=== PATIENT | female | born 1995 | race African-American/Black ===

== ENCOUNTER 2019-03-29 15:15 | Emergency (ER) | payer OTHER ==
[2019-03-29] MEDS ORDERED: NORMAL SALINE 1000 ML 1,000 ML IV ONE (16:17)
[2019-03-29] MEDS ORDERED: ONDANSETRON HCL INJ/PF 4 MG/2 ML SDV IV ONE ×2 (16:17→19:00)
--- NOTE | 2019-03-29 16:18 | ER Document Report ---
ED Medical Screen (RME) - General Chief Complaint: Abdominal Pain Stated Complaint: VOMITING/ABDOMINAL PAIN/CHILLS/ARMS TINGLING/DIAHE Time Seen by Provider: 03/29/19 16:15 Primary Care Provider: DEAN PÉREZ [Primary Care Provider] - Follow up as needed Mode of Arrival: Ambulatory Information source: Patient Notes: Otherwise healthy 23-year-old female presented emergency department with complaints of nausea, vomiting, diarrhea and abdominal pain. Patient denies any fever but reports chills. She denies any abnormal vaginal discharge. Generalized abdominal tenderness, no guarding, no rebound. I have greeted and performed a rapid initial assessment of this patient. A comprehensive ED assessment and evaluation of the patient, analysis of test results and completion of the medical decision making process will be conducted by additional ED providers. I have specifically instructed the patient or family members with the patient to immediately return to any nursing staff should anything change in the patient's condition or with their chief complaint. - Related Data Allergies/Adverse Reactions: No Known Allergies Allergy (Verified 03/29/19 16:17) Home Medications: control pill Past Medical History - Social History Frequency of alcohol use: None Drug Abuse: Marijuana Physical Exam - Vital signs Vitals: Temp Pulse Resp BP Pulse Ox 98.1 F 72 16 134/72 H 100 03/29/19 16:08 03/29/19 16:08 03/29/19 16:08 03/29/19 16:08 03/29/19 16:08 Course - Vital Signs Vital signs: Temp Pulse Resp BP Pulse Ox 98.1 F 72 16 134/72 H 100 03/29/19 16:08 03/29/19 16:08 03/29/19 16:08 03/29/19 16:08 03/29/19 16:08 Doctor's Discharge - Discharge Referrals: DEAN PÉREZ [Primary Care Provider] - Follow up as needed
[2019-03-29 17:27] LABS: ABSOLUTE BASOPHILS # (AUTO) 0.1 10^3/uL (0.0-0.2); ABSOLUTE EOSINOPHILS # (AUTO) 0.1 10^3/uL (0.0-0.6); ABSOLUTE LYMPHOCYTES (AUTO) 2.7 10^3/uL (0.5-4.7); ABSOLUTE MONOCYTES (AUTO) 0.9 10^3/uL (0.1-1.4); ABSOLUTE NEUT (AUTO) 8.2 10^3/uL (1.7-8.2); BASOPHILS % (AUTO) 0.8 % (0-2); EOSINOPHILS % (AUTO) 0.5 % (0-6); HEMATOCRIT 39.6 % (36.0-47.0); HEMOGLOBIN 13.2 g/dL (12.0-15.5); LYMPHOCYTES % (AUTO) 22.2 % (13-45); MEAN CORPUSCULAR HEMOGLOBIN 26.9 pg (27.0-33.4); MEAN CORPUSCULAR HGB CONC 33.4 g/dL (32.0-36.0); MEAN CORPUSCULAR VOLUME 81 fl (80-97); MONOCYTES % (AUTO) 7.9 % (3-13); PLATELET COUNT 473 10^3/uL (150-450); RED BLOOD COUNT 4.91 10^6/uL (3.72-5.28); RED CELL DISTRIBUTION WIDTH 15.7 % (11.5-14.0); SEGMENTED NEUTROPHILS % (AUTO) 68.6 % (42-78); TOTAL CELLS COUNTED % (AUTO) 100 %
[2019-03-29 17:48] LABS: ALBUMIN 4.8 g/dL (3.5-5.0); ALKALINE PHOSPHATASE 82 U/L (38-126); ANION GAP 18 (5-19); ASPARTATE AMINO TRANSFERASE 20 U/L (14-36); BILIRUBIN,DIRECT 0.3 mg/dL (0.0-0.4); BILIRUBIN,TOTAL 0.5 mg/dL (0.2-1.3); BLOOD UREA NITROGEN 7 mg/dL (7-20); CALCIUM 10.8 mg/dL (8.4-10.2); CARBON DIOXIDE 20 mmol/L (22-30); CHLORIDE 106 mmol/L (98-107); GLUCOSE 90 mg/dL (75-110); POTASSIUM 3.5 mmol/L (3.6-5.0); TOTAL PROTEIN 8.9 g/dL (6.3-8.2)
[2019-03-29 20:04] LABS: APPEARANCE,URINE SLIGHTLY-CLOUDY; BILIRUBIN,URINE NEGATIVE (NEGATIVE); COLOR,URINE YELLOW; GLUCOSE, URINE NEGATIVE (NEGATIVE); KETONES,URINE 80 mg/dL (NEGATIVE); LEUKOCYTE ESTERASE,URINE TRACE (NEGATIVE); NITRITE,URINE NEGATIVE (NEGATIVE); PROTEIN,URINE 30 mg/dL (NEGATIVE); URINE SPECIFIC GRAVITY 1.023; UROBILINOGEN,URINE NEGATIVE mg/dL (<2.0)
[2019-03-29] MEDS ORDERED: PANTOPRAZOLE SODIUM 40 MG VIAL IV ONE (20:25)
--- NOTE | 2019-03-29 20:33 | ER Document Report ---
ED General - General Chief Complaint: Abdominal Pain Stated Complaint: VOMITING/ABDOMINAL PAIN/CHILLS/ARMS TINGLING/DIAHE Time Seen by Provider: 03/29/19 16:15 Primary Care Provider: DEAN PÉREZ [NO LOCAL MD] - Follow up as needed Mode of Arrival: Ambulatory TRAVEL OUTSIDE OF THE [place] IN LAST 30 DAYS: No - HPI Notes: Previously healthy 23-year-old female taking no regular medications with no known allergies and no prior surgery now presenting with 12-hour history of abdominal cramping vomiting and watery stools. No fever, no chills. No melena, no hematemesis no bright red blood per rectum. Another family members had similar symptoms. Last normal menstrual period 2 weeks ago. - Related Data Allergies/Adverse Reactions: No Known Allergies Allergy (Verified 03/29/19 16:17) Home Medications: control pill Past Medical History - General Information source: Patient - Social History Smoking Status: Never Smoker Frequency of alcohol use: None Drug Abuse: Marijuana Family History: Reviewed & Not Pertinent Patient has suicidal ideation: No Patient has homicidal ideation: No Review of Systems - Review of Systems Notes: Constitutional: Negative for fever. HENT: Patient has expressed incidental concern about prominence of thyroid gland. Eyes: Negative for visual changes. Cardiovascular: Negative for chest pain. Respiratory: Negative for shortness of breath. Gastrointestinal: As per HPI. Genitourinary: Negative for dysuria. Musculoskeletal: Negative for back pain. Skin: Negative for rash. Neurological: Negative for headaches, weakness or numbness. 10 point ROS negative except as marked above and in HPI. Physical Exam - Vital signs Vitals: Temp Pulse Resp BP Pulse Ox 98.1 F 72 16 134/72 H 100 03/29/19 16:08 03/29/19 16:08 03/29/19 16:08 03/29/19 16:08 03/29/19 16:08 - Notes Notes: GENERAL: Well-developed well-nourished appearing in no acute distress. SKIN: Good turgor no rashes. HEAD: Normocephalic atraumatic. EYES: PERRLA. EOMI. Conjunctivae and sclerae clear. EARS: CANALS AND TMS CLEAR. NOSE: CLEAR. MOUTH: Moist mucosa. Good dentition. No stridor or edema. No drooling. NECK: Supple. Mild symmetrical enlargement of thyroid without tenderness or nodules. No masses or thyromegaly. No adenopathy. Carotids 2+ without bruits. No JVD. BACK: Symmetrical without tenderness. CHEST: Respirations unlabored. Breath sounds clear and symmetrical. HEART: Regular rhythm. No murmur gallop or rub. ABDOMEN: Hyperactive bowel sounds. Soft nontender without masses, organomegaly or rebound. No bruits. GENITALIA: Deferred. EXTREMITIES: No edema. No calf tenderness. Cap refill less than 1.5 seconds. Dorsalis pedis and posterior tibial pulses 3+ and symmetrical. NEUROLOGICAL: GCS 15. Alert and oriented x3. Normal gait. Fluent speech. Cranial nerves II through XII intact. Sensorimotor and cerebellar normal. Normal tone. PSYCHIATRIC: Appropriate affect. Course - Re-evaluation Re-evalutation: Findings are consistent with acute gastroenteritis. Patient is much better after receiving IV normal saline bolus and IV Zofran. I am going to give her some Protonix IV and then a trial of oral fluids and if this is well-tolerated anticipate discharge home. I told her thyroid should be followed up on outpatient basis by her primary care physician within the next 2 weeks. 03/29/19 20:31 03/29/19 22:05 P.o. fluid challenge has been tolerated and patient appears stable for further outpatient management - Vital Signs Vital signs: Temp Pulse Resp BP Pulse Ox 98.1 F 72 16 134/72 H 100 03/29/19 16:08 03/29/19 16:08 03/29/19 16:08 03/29/19 16:08 03/29/19 16:08 - Laboratory Result Diagrams: 03/29/19 17:13 03/29/19 17:13 Laboratory results interpreted by me: 03/29/19 03/29/19 03/29/19 17:13 17:13 19:29 WBC 12.0 H MCH 26.9 L RDW 15.7 H Plt Count 473 H Potassium 3.5 L Carbon Dioxide 20 L Calcium 10.8 H Total Protein 8.9 H Urine Protein 30 H Urine Ketones 80 H Ur Leukocyte Esterase TRACE H 03/29/19 20:31 test is negative. Urinalysis is remarkable only for ketonuria consistent with dehydration. Discharge - Discharge Clinical Impression: Acute gastroenteritis, Thyromegaly Disposition: HOME, SELF-CARE Instructions: Gastroenteritis (adult) ([facility]) Additional Instructions: Increase oral fluids then resume regular feedings as tolerated. Return here as needed for new or worsening symptoms: Pain that is worsening or unimproved Uncontrolled vomiting High fever or shaking chills Overall worsening See your family physician for follow-up when you return home and discuss further evaluation of your thyroid gland with them. Prescriptions: Famotidine [Pepcid 20 mg Tablet] 20 mg PO DAILY #12 tablet Ondansetron [Zofran Odt 4 mg Tablet] 1 - 2 tab PO Q4H PRN #15 tab.rapdis PRN Reason: For Nausea/Vomiting Referrals: LOCALMD,NO [NO LOCAL MD] - Follow up as needed
[2019-03-29 22:26] VITALS: BP 122/86
== END 2019-03-29 22:27 | disposition home or self-care (01) ==
LOC: ER 15:15
DX: K52.9 Noninfective gastroenteritis and colitis, unspecified (principal); E01.0 Iodine-deficiency related diffuse (endemic) goiter; R10.9 Unspecified abdominal pain; R11.10 Vomiting, unspecified; R19.4 Change in bowel habit; R82.4 Acetonuria; Z79.3 Long term (current) use of hormonal contraceptives
CPT/HCPCS: 99284; 96361; 96374; 96375; 36415; 83690; 84703; 85025; 80053; 81001; C9113; J2405; J7030